=== PATIENT | male | born 1980 | race Caucasian/White ===

== ENCOUNTER 2017-05-24 20:45 | Inpatient (IN) ==
--- NOTE | 2017-05-24 21:39 | Emergency Department Note ---
Disposition Clinical Impression: Scrotal abscess, Hyperglycemia Disposition: Still a Patient Condition: Good Referrals: Michelle Schwarz MD [Primary Care Provider] - Forms: Work/School Release, ED Satisfaction Letter Time of Disposition: 22:32 General Adult HPI - General Chief complaint: ED Nausea/Vomiting/Diarrhea Stated complaint: Hyperglycemia Time Seen by Provider: 05/24/17 21:18 Source: patient Mode of arrival: ambulatory Limitations: no limitations Nursing Notes Reviewed: Yes Vital Signs Reviewed: Yes - History of Present Illness HPI Narrative: 36-year-old male presents emergency room for elevated blood sugars. States his sugars been running in the 500 range. He was recently diagnosed with type 2 diabetes last week. He was started on Glucophage and Actos. States over the past few days her sugars have been reading high. He admits to polyuria polydipsia. His also here complaining of a right scrotal abscess. He states he is always hot but denies any documented fevers. No vomiting or diarrhea. No other complaints. States she has been compliant with his oral diabetes medications. Pain Scale: 10 - Related Data Home Medications Medication Instructions Recorded Confirmed Omeprazole [PriLOSEC] 40 mg PO DAILY 03/29/17 04/07/17 Allergies Allergy/AdvReac Type Severity Reaction Status Date / Time Amoxicillin AdvReac Diarrhea Verified 05/15/17 20:09 Oxycodone [From Roxicodone] AdvReac Drowsy Verified 05/15/17 20:09 Penicillins [PCN] AdvReac Diarrhea Verified 05/15/17 20:09 All systems ED: reviewed and negative except as stated. Constitutional: Reports: as per HPI. Denies: fever, chills Eyes: Reports: as per HPI ENT ED: Reports: as per HPI Cardiovascular: Reports: as per HPI Respiratory: Reports: as per HPI Gastrointestinal: Denies: abdominal pain, nausea, vomiting Genitourinary: Reports: as per HPI Musculoskeletal: Reports: as per HPI Integumentary: Reports: lesions (Right scrotal abscess) Neurological: Reports: as per HPI Psychiatric: Reports: as per HPI Endocrine: Reports: as per HPI Hematological/Lymphatic: Reports: as per HPI Allergic/Immunologic: Reports: as per HPI Past Medical History - Past Medical History Medical history: Reports: diabetes, GERD Surgical history: Reports: herniorrhaphy, orthopedic, other, vasectomy, other Psychiatric history: Reports: anxiety, depression - Social History Smoking Status: Current every day smoker Smokeless Tobacco Status: No Alcohol use: Reports: none Drug use: Reports: none Physical Exam - General Limitations: no limitations General appearance: alert, in no apparent distress - Head Head exam: atraumatic, normocephalic - Eye Eye exam: Present: normal appearance - ENT ENT exam: normal exam - Neck Neck exam: Present: normal inspection - Chest Chest inspection: Present: normal inspection - Respiratory Respiratory exam: Present: normal lung sounds bilaterally - Cardiovascular Cardiovascular exam: Present: regular rate, normal rhythm - Abdominal Exam Abdominal exam: Present: soft, Non-Tender, normal bowel sounds - Male exam: Present: scrotal swelling (Right scrotal abscess noted. There is an opening to this abscess that is spontaneously draining pus. There is some surrounding erythema present as well.), other - Expanded Lower Extremity Exam Hip/Pelvis exam: Present: normal inspection - Neurological Exam Neurological exam: Present: alert, oriented X3 - Psychiatric Psychiatric exam: Present: normal affect, normal mood - Skin Skin exam: Present: warm, dry, intact Course Vital Signs Temperature 98.4 F 05/24/17 21:02 Pulse Rate 98 05/24/17 21:02 Respiratory Rate 16 05/24/17 21:02 Blood Pressure 164/108 05/24/17 21:02 O2 Sat by Pulse Oximetry 94 05/24/17 21:02 Temperature 98.4 F 05/24/17 21:02 Pulse Rate 98 05/24/17 21:02 Respiratory Rate 16 05/24/17 21:02 Blood Pressure 164/108 05/24/17 21:02 O2 Sat by Pulse Oximetry 94 05/24/17 21:02 Medical Decision Making - Medical Records Medical records reviewed: Yes I reviewed the patient's medical records. - Lab Data Lab results reviewed: Yes I reviewed the patient's lab results.
[2017-05-24 22:35] LABS: Basophils % 0.4 %; Eosinophils # 0.2 K/mcL (0.0-0.6); Eosinophils % 1.9 %; Hematocrit 41.4 % (37.5-50.1); Hemoglobin 15.1 g/dL (12.9-16.9); Immature Granulocytes % 2.5 % (0-4); Lymphocytes # 3.1 K/mcL (0.6-4.6); Lymphocytes % 29.7 %; Mean Corpuscular HGB Conc 36.5 g/dL (31.6-35.5); Mean Corpuscular Hemoglobin 30.3 pg (28.0-33.3); Mean Corpuscular Volume 83.1 fL (83.0-100.0); Mean Platelet Volume 9.5 fL (9.4-12.4); Monocytes # 0.5 K/mcL (0.0-1.3); Neutrophils # 6.4 K/mcL (1.6-8.9); Platelet Count 235 K/mcL (140-400); Red Blood Count 4.98 M/mcL (4.19-5.50); Segmented Neutrophils % 60.5 %
[2017-05-24 22:52] LABS: Platelet Estimate Normal (Normal)
[2017-05-24 23:00] LABS: BUN/Creatinine Ratio 19 (6-26); Blood Urea Nitrogen 18 mg/dL (6-20); Calcium 9.4 mg/dL (8.6-10.3); Carbon Dioxide 23 mEq/L (23-29); Chloride 98 mEq/L (98-107); Glucose 546 mg/dL (70-105); Osmolality,Calculated 299 (280-300); Sodium 131 mEq/L (136-145); eGFR For African Americans > 60 (> 60); eGFR For Non-African Americans > 60 (> 60)
[2017-05-24] MEDS ORDERED: Clindamycin 600 MG/50 ML 600 MG/50 ML IV.SOLN IVPB ONE (23:17)
[2017-05-24 23:22] LABS: VBG HCO3 24 mEq/L (21-27); VBG PCO2 37 mmHg (41-51); VBG PH 7.42 pH Units (7.32-7.42); VBG PO2 114 mmHg (25-50)
[2017-05-24] MEDS ORDERED: Insulin Human Regular 10 UNIT in 0.9 % Sodium Chloride 10 ML IV ONE (23:44)
[2017-05-25] MEDS ORDERED: 0.9 % Sodium Chloride 1,000 ML IVC SCH (00:15)
[2017-05-25] MEDS: 0.9 % Sodium Chloride 1,000 ML IVC SCH ×3 (00:18→08:31)
--- NOTE | 2017-05-25 01:51 | Internal Med History&Physical ---
<Keli Forbes - Last Filed: 05/25/17 03:36> Date of Encounter: 05/25/17 Time of Encounter: 01:50 Assessment and Plan (1) Scrotal abscess Current visit: Yes Status: Acute 36-year-old male presenting with multiple episodes of scrotal abscess s/p I&D. Patient's most recent episode was last month Commence antibiotic coverage Wound culture, anaerobic and aerobic pending. We will de-escalate antibiotics, based on culture sensitivities We will consult surgery in a.m., for eval for I&D Consult wound care, appreciate coordination of care Testing for STDs. Patient consented to testing for HIV (2) Hyperglycemia Current visit: Yes Status: Acute 36-year-old male with diabetes type 2, presenting with hyperglycemia Hemoglobin A1c pending Depending on A1c, we will decide whether patient's insulin regimen. If pt transition to insulin, will need to d/c current home medicatioin Initiate sliding scale and Lantus as inpatient Diabetic Diet (3) DM type 2 (diabetes mellitus, type 2) Current visit: Yes Status: Chronic See plan above. UA pending Would benefit from diabetes education Recommended lifestyle changes with exercise and diet Patient and family verbalized understanding. Qualifiers: Diabetes mellitus rodent exterminator insulin use: without rodent exterminator use Diabetes mellitus complication status: with hyperglycemia Qualified Code(s): E11.65 - Type 2 diabetes mellitus with hyperglycemia (4) GERD (gastroesophageal reflux disease) Current visit: Yes Status: Acute Continue home medications. Qualifiers: Esophagitis presence: esophagitis presence not specified Qualified Code(s) : K21.9 - Gastro-esophageal reflux disease without esophagitis (5) DVT prophylaxis Current visit: Yes Status: Acute Heparin subcutaneous BID Internal Medicine - H&P: HPI Chief complaint: Hyperglycemia, Scrotal Pain Admitted From: Home Plans for Post Hospital Care: Home History of present illness: Mr. Morgan is a 36 year old male with recently diagnosed diabetes type 2 (1 week ago) presenting for hyperglycemia glucose levels of 590s at home. Patient was told by PCP to monitor glucose levels 1 times a day randomly. He states his glucose levels have ranged from 300 to 590s. Patient does not recall hemoglobin A1c. Patient endorses symptoms of nausea, lightheadedness, sweating with elevated glucose reading. 3 days prior to presentation, patient recalls also 1 episode of nonbloody nonbilious emesis. However he did not take his glucose levels at this time. Patient denies any tremors. Denies visit changes. Denies burning or tingling sensation in legs. Patient does not recall an episode where glucose levels were low. In terms of diet patient states he eats whatever he likes, including drinking fruit juices. He snacks on cookies. Endorses family history of type 2 diabetes in mother and Father. Patient also notes he has noted a scrotal abscess, for the past week which "opened up" 2 days ago with pus. Scrotal abscess on the right side near iliac crest. Patient states pain is constant and burning in nature. Denies relief of pain with elevation of scrotum. Does not know if he he has had a fever at home. Endorses increased urinary frequency, and urgency. Denies dysuria. Denies abdominal pain. Endorses history of scrotal surgery with vasectomy 2 years ago. Patient is in relationship with one person, is monogamous. Patient was last tested for STDs 2 years ago Past Med Surg Social Fam HX - Past Medical History Medical history: diabetes, GERD, hypertension Psychiatric history: anxiety, depression - Past Surgical History Surgical History: herniorrhaphy, orthopedic, other, vasectomy, other - Social History Smoking Status: Current every day smoker Packs per day: 1 Smokeless Tobacco Status: No Alcohol use: rarely Drug use: none - Family History Mother Living Status: Age at : 54 Cause of : Overdose Hx Family Cardiac Disorders: Yes (HTN) Hx Family Endocrine Disorder: Yes (DM) Internal Medicine - H&P: Meds Omeprazole [PriLOSEC] 40 mg PO BID 03/29/17 [History] Pioglitazone HCl [Actos] 30 mg PO DAILY 05/25/17 [History] metFORMIN 500 mg PO QID 05/25/17 [History] 3 Allergy/AdvReac Type Severity Reaction Status Date / Time Amoxicillin AdvReac Diarrhea Verified 05/15/17 20:09 Oxycodone [From Roxicodone] AdvReac Drowsy Verified 05/15/17 20:09 Penicillins [PCN] AdvReac Diarrhea Verified 05/15/17 20:09 All Systems PM: A 10-system review of systems was performed and is negative for pertinent findings except as documented above in the HPI. - Constitutional Constitutional: as per HPI - Cardiovascular Cardiovascular ROS IM: as per HPI - Respiratory Respiratory: as per HPI - Gastrointestinal Gastrointestinal: as per HPI - Genitourinary Genitourinary ROS male: as per HPI - Constitutional Vitals: Temp Pulse Resp BP Pulse Ox 98.3 F 90 16 117/75 93 05/25/17 01:34 05/25/17 01:34 05/25/17 01:34 05/25/17 01:34 05/25/17 01:34 General appearance: Present: cooperative, A&O X 3, obese, answers questions appropriately - Head Head exam: Present: atraumatic, normocephalic - Respiratory Respiratory exam: Present: CTAB. Absent: accessory muscle use, chest wall tenderness, respiratory distress - Cardiovascular Cardiovascular exam: Present: RRR, +S1, +S2. Absent: tachycardia - GI/Abdominal GI/Abdominal exam: Present: normal bowel sounds, soft, tenderness, no peritoneal signs - Additional comments: Residual left-sided scrotal abscess changes seen on left. - Expanded Exam Male exam: Present: erythema. Absent: penile swelling, priapism image: 1 - Scrotal abscesses on the right, with draining pus. No bluish reddish discoloration. Erythema overlying abcess. Internal Med - H&P Results - Labs CBC & Chem 7: 05/24/17 22:11 05/24/17 22:11 <Sirena Trotter - Last Filed: 05/25/17 04:36> Date of Encounter: 05/25/17 Internal Medicine - H&P: HPI History of present illness: Mr. Morgan is a 36 year old male All Systems PM: A 10-system review of systems was performed and is negative for pertinent findings except as documented above in the HPI. - Constitutional Vitals: Temp Pulse Resp BP Pulse Ox 97.8 F 85 16 121/72 95 05/25/17 03:45 05/25/17 03:45 05/25/17 03:45 05/25/17 03:45 05/25/17 03:45 Internal Med - H&P Results - Labs CBC & Chem 7: 05/24/17 22:11 05/24/17 22:11 - Attending Attestation I examined this patient and my medical decision-making was reviewed with the Resident Physician Dr. Forbes. I agree with the documented findings, disposition and treatment plan as described except to the extent set forth below. Mr. Morgan is a 36 y/o M with recently diagnosed DM2 on PO Metformin and Actos started by his PCP, who also had Left scrotal abscess s/p I & D a month ago by Dr. Pond now he presented to ER with Rt scrotal swelling, abscess and open with purulent drainage. He also have uncontrolled BS in 500 range at home Gen: A, A, O x 3 Chest: Diminished BS b/l Heart: S1S2 + RRR No murmus - small open wound over rt side of scrotum with purulent discharge. Healed ulcer over Left groin area noticed A/p 1. Acute Rt scrotal abscess Still has some induration Consult surgery in AM for further eval started on broad spec ab Clinda ( G+ve, MRSA and Anaerobic coverage ) and Rocephin - G-Ve coverage wound cx ordered check STD's 2. Uncontrolled DM2 3. Severe hyperglycemia ISS + Levemir HbA1C ordered Hold PO meds for now
[2017-05-25] MEDS ORDERED: Naloxone 0.4 MG/ML INJ IVP PRN (02:45)
[2017-05-25] MEDS ORDERED: Dextrose Gel 15 GM/37.5 ML TUBE PO PRN ×2 (03:51)
[2017-05-25] MEDS ORDERED: *HR* Dextrose 50 % in Water (Syg) 50 ML SYRINGE IVP PRN (03:51)
[2017-05-25] MEDS ORDERED: D5% in Water 1,000 ML IVC PRN (03:51)
[2017-05-25 04:27] LABS: Bilirubin,Urine Negative (Negative); Blood,Urine Negative (Negative); Clarity,Urine Clear (Clear); Color,Urine Yellow (Yellow); Glucose,Urine (UA) >=1000 mg/dL (Normal); Ketones,Urine Negative (Negative); Leukocyte Esterase,Urine Negative (Negative); Nitrite,Urine Negative (Negative); PH,Urine 6.5 pH Units (5.0-8.0); Protein,Urine Negative (Neg-Trace); Specific Gravity,Urine > 1.030 (1.010-1.025); Urobilinogen,Urine Normal (Normal)
--- NOTE | 2017-05-25 04:32 | Emergency Department Note ---
START Narrative - START START: I examined this patient and my medical decision-making was reviewed with the Resident Physician. I agree with the documented findings, disposition and treatment plan as described except to the extent set forth below. Findings consistent with hyperglycemia and scrotal abscess. No clinical signs of Katia's. We will start clindamycin and vancomycin and treat hyperglycemia with insulin and IV fluids. No evidence of diabetic ketoacidosis.
[2017-05-25] MEDS: Insulin DETEMIR 100 UNIT/ML X5UNITS SQ SCH ×2 (04:41→21:43)
[2017-05-25] MEDS: *HR* Heparin 5,000 UNIT/ML VIAL SQ SCH ×2 (04:41→16:40)
[2017-05-25 05:23] LABS: Basophils # 0.1 K/mcL (0.0-0.2); Basophils % 0.9 %; Eosinophils # 0.2 K/mcL (0.0-0.6); Hematocrit 39.1 % (37.5-50.1); Immature Granulocytes % 2.7 % (0-4); Lymphocytes # 3.7 K/mcL (0.6-4.6); Lymphocytes % 38.8 %; Mean Corpuscular HGB Conc 35.8 g/dL (31.6-35.5); Mean Corpuscular Volume 83.9 fL (83.0-100.0); Mean Platelet Volume 9.5 fL (9.4-12.4); Monocytes # 0.5 K/mcL (0.0-1.3); Monocytes % 5.2 %; Neutrophils # 4.8 K/mcL (1.6-8.9); Platelet Count 200 K/mcL (140-400); Red Blood Count 4.66 M/mcL (4.19-5.50); Red Cell Distribution Width 13.9 % (11.5-14.5); Segmented Neutrophils % 50.4 %
[2017-05-25 05:43] LABS: BUN/Creatinine Ratio 18 (6-26); Blood Urea Nitrogen 16 mg/dL (6-20); Calcium 8.5 mg/dL (8.6-10.3); Carbon Dioxide 23 mEq/L (23-29); Chloride 102 mEq/L (98-107); Chol/HDL Ratio 4.2 (0-4.9); Cholesterol 100 mg/dL (< 200); Glucose 337 mg/dL (70-105); HDL Cholesterol 24 mg/dL (40-59); Osmolality,Calculated 292 (280-300); Potassium 3.4 mEq/L (3.5-5.1); Sodium 134 mEq/L (136-145); Triglycerides 638 mg/dL (< 150); eGFR For African Americans > 60 (> 60); eGFR For Non-African Americans > 60 (> 60)
[2017-05-25] MEDS ORDERED: Insulin LISPRO 300 UNITS/3 ML VIAL SQ SCH (07:30)
[2017-05-25] MEDS: Clindamycin 600 MG/50 ML 600 MG/50 ML IV.SOLN IVPB SCH ×3 (08:31→23:36)
[2017-05-25] MEDS: cefTRIAXone 1,000 MG in Water for inj. (sterile) 20 ML 10 ML IVP SCH (08:31)
[2017-05-25 09:17] LABS: Estimated Average Glucose 223 mg/dl; Hemoglobin A1C 9.4 %
--- NOTE | 2017-05-25 11:14 | General Surgery Consult Note ---
<Soraya Watson - Last Filed: 05/25/17 11:22> Date of Encounter: 05/25/17 Time of Encounter: 10:45 Assessment and Plan (1) Scrotal abscess Current Visit: Yes Status: Acute Abscess is widely opened and drained Wound care- cleanse with soap and water in the shower and pat dry, pack with 1/ 4 inch plain gauze, cover with 2X2 gauze and tape to secure daily for the next 5 days and then discontinue. Supportive care Antibiotic management per hospitalist Treat hyperglycemia per hospitalist Surgery will sign off. No indication for further intervention. Thank you for allowing us to participate in the care of this patient. Please call with further questions or concerns. May follow-up as needed in the surgery office. (2) DM type 2 (diabetes mellitus, type 2) Current Visit: Yes Status: Chronic Management per hospitalist service Qualifiers: Diabetes mellitus penitentiary insulin use: without penitentiary use Diabetes mellitus complication status: with hyperglycemia Qualified Code(s): E11.65 - Type 2 diabetes mellitus with hyperglycemia History of Present Illness Consult date: 05/25/17 Reason for consult: other (scrotal abscess) Requesting physician: Keli Forbes History of present illness: Mr. Morgan is a 36 year old male with a past medical history significant for morbid obesity, HTN, diabetes mellitus (Type 2) diagnosed 1 week ago, GERD. He reports swelling in the right scrotum which started approximately 1 weeks ago. He states that the area spontaneously opened a couple of days ago and drained a large amount of purulent, foul smelling drainage. He reports a history of abscesses with his last abscess 1 month ago. He denies any fevers/chills. He admits that his blood sugars have ranged from 300-590. We have been asked to see and evaluate the patient for recommendations. Past Med Surg Social Fam HX - Past Medical History Source: patient Medical history: diabetes, GERD, hypertension, other (morbid obesity) Psychiatric history: anxiety, depression - Past Surgical History Surgical History: herniorrhaphy, orthopedic, other, vasectomy, other (I&D of left scrotal abscess) - Social History Smoking Status: Current every day smoker Packs per day: 1 Smokeless Tobacco Status: No Alcohol use: rarely Drug use: none - Family History Mother Living Status: Age at : 54 Cause of : Overdose Hx Family Cardiac Disorders: Yes (HTN) Hx Family Endocrine Disorder: Yes (DM) Medications and Allergies Omeprazole [PriLOSEC] 40 mg PO BID 03/29/17 [History] Metformin HCl [Glucophage] 1,000 mg PO BID 05/25/17 [History] Pioglitazone HCl [Actos] 30 mg PO DAILY 05/25/17 [History] 3 Allergy/AdvReac Type Severity Reaction Status Date / Time Amoxicillin AdvReac Diarrhea Verified 05/15/17 20:09 Oxycodone [From Roxicodone] AdvReac Drowsy Verified 05/15/17 20:09 Penicillins [PCN] AdvReac Diarrhea Verified 05/15/17 20:09 Review of Systems All systems PM: reviewed and no additional remarkable complaints except as stated (pertinent positives as listed in the HPI) All systems PM: The remainder of the systems were reviewed and are negative General Surgery Exam Initial Vital Signs Temp Pulse Resp BP Pulse Ox 98.4 F 98 16 164/108 94 05/24/17 21:02 05/24/17 21:02 05/24/17 21:02 05/24/17 21:02 05/24/17 21:02 - General physical appearance well developed, well nourished, no distress, obese - Eyes normal ocular movement - ENT normal mucosa, atraumatic, normocephalic - Neck trachea midline - Respiratory normal respiratory effort, clear to auscultation - Cardiovascular Cardiovascular exam: Present: RRR - Abdomen Abdomen general surgery: Present: bowel sounds present, soft, non tender - Genitourinary Present: other (right scrotum with open wound noted- widely open and measures 0.5 X 0.5 X 1cm. 90% granulation tissue noted. Small amount of serous drainage noted without odor. No surrounding erythema noted. Mild surrounding induration. No tunnelling or undermining noted.) - Integumentary Integumentary general surgery: Present: warm and dry - Neurologic Present: CN 2-12 grossly intact - Psychiatric Psychiatric general surgery: Present: appropriate, oriented to person, oriented to place, oriented to time, speech is normal, memory intact Exam Initial Vital Signs Temp Pulse Resp BP Pulse Ox 98.4 F 98 16 164/108 94 05/24/17 21:02 05/24/17 21:02 05/24/17 21:02 05/24/17 21:02 05/24/17 21:02 Results - Labs 05/25/17 05:03 05/25/17 05:03 Abnormal lab results MCHC 35.8 g/dL (31.6-35.5) H 05/25/17 05:03 ESR 27 mm/hr (0-10) H 05/24/17 22:56 VBG pCO2 37 mmHg (41-51) L 05/24/17 23:09 VBG pO2 114 mmHg (25-50) H 05/24/17 23:09 Sodium 134 mEq/L (136-145) L 05/25/17 05:03 Potassium 3.4 mEq/L (3.5-5.1) L 05/25/17 05:03 Glucose 337 mg/dL (70-105) H 05/25/17 05:03 POC Glucose 328 mg/dL (68-89) H 05/25/17 03:49 Hemoglobin A1c 9.4 % (-5.6) H 05/25/17 05:03 Calcium 8.5 mg/dL (8.6-10.3) L 05/25/17 05:03 C-Reactive Protein 36 mg/L (Less than 10) H 05/24/17 22:56 Triglycerides 638 mg/dL (< 150) H 05/25/17 05:03 HDL Cholesterol 24 mg/dL (40-59) L 05/25/17 05:03 Beta-Hydroxybutyric Acd 0.44 mmol/L (0.02-0.27) H 05/24/17 22:11 Ur Specific [place] > 1.030 (1.010-1.025) H 05/24/17 21:10 Urine Glucose (UA) >=1000 mg/dL (Normal) H 05/24/17 21:10 Diabetes panel 05/25/17 05/25/17 Range/Units 05:03 05:03 Sodium 134 L (136-145) mEq/L Potassium 3.4 L (3.5-5.1) mEq/L Chloride 102 (98-107) mEq/L Carbon Dioxide 23 (23-29) mEq/L BUN 16 (6-20) mg/dL Creatinine 0.89 (0.70-1.30) mg/dL Glucose 337 H (70-105) mg/dL Hemoglobin A1c 9.4 H ( - 5.6) % Calcium 8.5 L (8.6-10.3) mg/dL Triglycerides 638 H (< 150) mg/dL HDL Cholesterol 24 L (40-59) mg/dL Calcium panel 05/25/17 Range/Units 05:03 Calcium 8.5 L (8.6-10.3) mg/dL Pituitary panel 05/25/17 Range/Units 05:03 Sodium 134 L (136-145) mEq/L Potassium 3.4 L (3.5-5.1) mEq/L Chloride 102 (98-107) mEq/L Carbon Dioxide 23 (23-29) mEq/L BUN 16 (6-20) mg/dL Creatinine 0.89 (0.70-1.30) mg/dL Glucose 337 H (70-105) mg/dL Calcium 8.5 L (8.6-10.3) mg/dL Adrenal panel 05/25/17 Range/Units 05:03 Sodium 134 L (136-145) mEq/L Potassium 3.4 L (3.5-5.1) mEq/L Chloride 102 (98-107) mEq/L Carbon Dioxide 23 (23-29) mEq/L BUN 16 (6-20) mg/dL Creatinine 0.89 (0.70-1.30) mg/dL Glucose 337 H (70-105) mg/dL Calcium 8.5 L (8.6-10.3) mg/dL All other labs normal. Consult Discharge Plan - Plan Referrals: Michelle Schwarz MD [Primary Care Provider] - - Attending Attestation For this encounter, I have reviewed the CLAIMS ADJUSTER SUPERVISOR or PA documentation, treatment plan, and medical decision making; and I have had face to face time with this patient. <Gordon Pond - Last Filed: 05/25/17 15:50> Date of Encounter: 05/25/17 Review of Systems All systems PM: The remainder of the systems were reviewed and are negative General Surgery Exam Initial Vital Signs Temp Pulse Resp BP Pulse Ox 98.4 F 98 16 164/108 94 05/24/17 21:02 05/24/17 21:02 05/24/17 21:02 05/24/17 21:02 05/24/17 21:02 Exam Initial Vital Signs Temp Pulse Resp BP Pulse Ox 98.4 F 98 16 164/108 94 05/24/17 21:02 05/24/17 21:02 05/24/17 21:02 05/24/17 21:02 05/24/17 21:02 Results - Labs 05/25/17 05:03 05/25/17 05:03 Abnormal lab results MCHC 35.8 g/dL (31.6-35.5) H 05/25/17 05:03 ESR 27 mm/hr (0-10) H 05/24/17 22:56 VBG pCO2 37 mmHg (41-51) L 05/24/17 23:09 VBG pO2 114 mmHg (25-50) H 05/24/17 23:09 Sodium 134 mEq/L (136-145) L 05/25/17 05:03 Potassium 3.4 mEq/L (3.5-5.1) L 05/25/17 05:03 Glucose 337 mg/dL (70-105) H 05/25/17 05:03 POC Glucose 328 mg/dL (68-89) H 05/25/17 03:49 Hemoglobin A1c 9.4 % (-5.6) H 05/25/17 05:03 Calcium 8.5 mg/dL (8.6-10.3) L 05/25/17 05:03 C-Reactive Protein 36 mg/L (Less than 10) H 05/24/17 22:56 Triglycerides 638 mg/dL (< 150) H 05/25/17 05:03 HDL Cholesterol 24 mg/dL (40-59) L 05/25/17 05:03 Beta-Hydroxybutyric Acd 0.44 mmol/L (0.02-0.27) H 05/24/17 22:11 Ur Specific [place] > 1.030 (1.010-1.025) H 05/24/17 21:10 Urine Glucose (UA) >=1000 mg/dL (Normal) H 05/24/17 21:10 Diabetes panel 05/25/17 05/25/17 Range/Units 05:03 05:03 Sodium 134 L (136-145) mEq/L Potassium 3.4 L (3.5-5.1) mEq/L Chloride 102 (98-107) mEq/L Carbon Dioxide 23 (23-29) mEq/L BUN 16 (6-20) mg/dL Creatinine 0.89 (0.70-1.30) mg/dL Glucose 337 H (70-105) mg/dL Hemoglobin A1c 9.4 H ( - 5.6) % Calcium 8.5 L (8.6-10.3) mg/dL Triglycerides 638 H (< 150) mg/dL HDL Cholesterol 24 L (40-59) mg/dL Calcium panel 05/25/17 Range/Units 05:03 Calcium 8.5 L (8.6-10.3) mg/dL Pituitary panel 05/25/17 Range/Units 05:03 Sodium 134 L (136-145) mEq/L Potassium 3.4 L (3.5-5.1) mEq/L Chloride 102 (98-107) mEq/L Carbon Dioxide 23 (23-29) mEq/L BUN 16 (6-20) mg/dL Creatinine 0.89 (0.70-1.30) mg/dL Glucose 337 H (70-105) mg/dL Calcium 8.5 L (8.6-10.3) mg/dL Adrenal panel 05/25/17 Range/Units 05:03 Sodium 134 L (136-145) mEq/L Potassium 3.4 L (3.5-5.1) mEq/L Chloride 102 (98-107) mEq/L Carbon Dioxide 23 (23-29) mEq/L BUN 16 (6-20) mg/dL Creatinine 0.89 (0.70-1.30) mg/dL Glucose 337 H (70-105) mg/dL Calcium 8.5 L (8.6-10.3) mg/dL All other labs normal. - Attending Attestation The patient is seen and evaluated. The patient has previously had resection of scrotal abscess. He presented with severe hyperglycemia associated with new onset diagnosis of diabetes. The recurrent perineal abscess open spontaneously. This being packed with iodoform. No further action is necessary. This actually essential to control his blood sugars to promote wound healing. Gordon Pond MD FACS
[2017-05-25] MEDS: Insulin LISPRO 300 UNITS/3 ML VIAL SQ SCH ×3 (12:13→21:43)
--- NOTE | 2017-05-25 12:55 | Internal Med Progress Note ---
Date of Encounter: 05/25/17 Time of Encounter: 10:35 - Assessment and plan (1) Scrotal abscess Current Visit: Yes Status: Acute Assessment and plan: Being treated with ceftriaxone and clindamycin. Surgery following. Will follow response. Moderate risk for complications. (2) DM type 2 (diabetes mellitus, type 2) Current Visit: Yes Status: Chronic Assessment and plan: Patient continues to have hyperglycemia. Blood sugars have improved however since hospitalization. Given his significantly elevated blood sugars on presentation, I recommend that he be started on insulin therapy in addition to metformin and Actos. We will discuss with medical social worker as to best options for this patient with regards to insulin. For now, place patient on high-dose correctional sliding scale and long-acting insulin. We will continue to monitor blood sugars and adjust insulin regimen accordingly. Qualifiers: Diabetes mellitus long term care social worker insulin use: without senior living use Diabetes mellitus complication status: with hyperglycemia Qualified Code(s): E11.65 - Type 2 diabetes mellitus with hyperglycemia (3) GERD (gastroesophageal reflux disease) Current Visit: Yes Status: Chronic Assessment and plan: Continue Prilosec Qualifiers: Esophagitis presence: esophagitis presence not specified Qualified Code(s) : K21.9 - Gastro-esophageal reflux disease without esophagitis (4) Hyperglycemia Current Visit: Yes Status: Acute Assessment and plan: Management as above for diabetes (5) DVT prophylaxis Current Visit: Yes Status: Acute Assessment and plan: With subcutaneous heparin - Time Spent With Patient Total time spent is greater than 50% in coordination of care (as documented) at patient's floor/unit and/or counseling patient: - Subjective Interval history: Patient continues to have pain in his right scrotal region. He was evaluated for surgery this morning. Wound packed. No fever or chills reported overnight. No nausea or vomiting. Patient reports that he was recently started on metformin and Actos for his diabetes. He says that he has been compliant with these medications. - Constitutional Vitals: Temp Pulse Resp BP Pulse Ox 97.7 F 92 15 116/72 96 05/25/17 10:25 05/25/17 10:25 05/25/17 10:25 05/25/17 10:25 05/25/17 10:25 General appearance: Present: cooperative, A&O X 3, obese, answers questions appropriately - Neck Neck exam general surgery: Present: supple, trachea midline. Absent: lymphadenopathy - Respiratory Respiratory exam: Present: CTAB. Absent: accessory muscle use, rales, rhonchi, wheezes - Cardiovascular Cardiovascular exam: Present: RRR, +S1, +S2. Absent: diastolic murmur, gallop, rubs, systolic murmur - GI/Abdominal GI/Abdominal exam: Present: normal bowel sounds, soft, no peritoneal signs. Absent: distended, tenderness - exam: Present: scrotal swelling - Extremities Exam Extremities exam: Present: warm, radial pulses palpable and symmetrical. Absent : calf tenderness, cyanotic, pedal edema - Neurological Exam Neurological exam: Present: alert, oriented X3, no focal deficits. Absent: facial droop, speech deficit - Skin Skin exam: Present: dry, intact Internal Medicine: Result - Labs CBC & Chem 7: 05/25/17 05:03 05/25/17 05:03 Labs: Short CBC 05/25/17 Range/Units 05:03 WBC 9.5 (4.3-11.1) K/mcL Hgb 14.0 (12.9-16.9) g/dL Hct 39.1 (37.5-50.1) % Plt Count 200 (140-400) K/mcL Neutrophils # 4.8 (1.6-8.9) K/mcL BMP 05/25/17 05:03 Sodium 134 L Potassium 3.4 L Chloride 102 Carbon Dioxide 23 BUN 16 Creatinine 0.89 Glucose 337 H Calcium 8.5 L Consult Discharge Plan - Plan Referrals: Michelle Schwarz MD [Primary Care Provider] -
[2017-05-25] MEDS: Ringers Solution, Lactated 1,000 ML IVC SCH (22:02)
[2017-05-26] MEDS: *HR* Heparin 5,000 UNIT/ML VIAL SQ SCH ×2 (05:29→17:49)
[2017-05-26 06:06] LABS: Basophils # 0.1 K/mcL (0.0-0.2); Basophils % 1.3 %; Eosinophils # 0.2 K/mcL (0.0-0.6); Eosinophils % 2.1 %; Hematocrit 39.8 % (37.5-50.1); Hemoglobin 14.2 g/dL (12.9-16.9); Lymphocytes # 3.5 K/mcL (0.6-4.6); Lymphocytes % 38.1 %; Mean Corpuscular HGB Conc 35.7 g/dL (31.6-35.5); Mean Platelet Volume 9.4 fL (9.4-12.4); Monocytes # 0.5 K/mcL (0.0-1.3); Monocytes % 5.6 %; Neutrophils # 4.5 K/mcL (1.6-8.9); Platelet Count 209 K/mcL (140-400); Red Blood Count 4.74 M/mcL (4.19-5.50); Red Cell Distribution Width 13.6 % (11.5-14.5); Segmented Neutrophils % 49.9 %
[2017-05-26 06:20] LABS: BUN/Creatinine Ratio 13 (6-26); Blood Urea Nitrogen 11 mg/dL (6-20); Calcium 8.5 mg/dL (8.6-10.3); Carbon Dioxide 26 mEq/L (23-29); Chloride 107 mEq/L (98-107); Glucose 145 mg/dL (70-105); Osmolality,Calculated 290 (280-300); Potassium 3.5 mEq/L (3.5-5.1); Sodium 139 mEq/L (136-145); eGFR For African Americans > 60 (> 60); eGFR For Non-African Americans > 60 (> 60)
[2017-05-26] MEDS ORDERED: Insulin DETEMIR 100 UNIT/ML X5UNITS SQ SCH (09:00)
[2017-05-26] MEDS ORDERED: Ibuprofen 600 MG TABLET PO PRN (09:12)
[2017-05-26] MEDS: cefTRIAXone 1,000 MG in Water for inj. (sterile) 20 ML 10 ML IVP SCH (09:50)
[2017-05-26] MEDS: Insulin LISPRO 300 UNITS/3 ML VIAL SQ SCH ×4 (09:51→20:50)
[2017-05-26] MEDS: *HR* HYDROcodone/Acet 5/325 mg TABLET PO PRN ×3 (09:53→20:53)
--- NOTE | 2017-05-26 09:56 | Internal Med Progress Note ---
Date of Encounter: 05/26/17 Time of Encounter: 09:00 - Assessment and plan (1) Scrotal abscess Current Visit: Yes Status: Acute Assessment and plan: Wound packed yesterday. Continue current antibiotics. Wound culture growing gram-negative rods. We will await final culture results. Continue local wound care. (2) DM type 2 (diabetes mellitus, type 2) Current Visit: Yes Status: Chronic Assessment and plan: Blood sugars are improved today. Will place patient on 70/30 insulin. collar worker consulted to help with medication costs. Qualifiers: Diabetes mellitus group home insulin use: without group home use Diabetes mellitus complication status: with hyperglycemia Qualified Code(s): E11.65 - Type 2 diabetes mellitus with hyperglycemia (3) GERD (gastroesophageal reflux disease) Current Visit: Yes Status: Chronic Assessment and plan: Continue omeprazole Qualifiers: Esophagitis presence: esophagitis presence not specified Qualified Code(s) : K21.9 - Gastro-esophageal reflux disease without esophagitis (4) Hyperglycemia Current Visit: Yes Status: Resolved (5) DVT prophylaxis Current Visit: Yes Status: Acute Assessment and plan: With subcutaneous heparin - Time Spent With Patient Total time spent is greater than 50% in coordination of care (as documented) at patient's floor/unit and/or counseling patient: - Subjective Interval history: Patient complains of mild pain in his scrotal region. Otherwise doing well. No fever or chills reported overnight. - Constitutional Vitals: Temp Pulse Resp BP Pulse Ox 97.8 F 81 16 140/86 96 05/26/17 07:49 05/26/17 07:49 05/26/17 07:49 05/26/17 07:49 05/26/17 07:49 General appearance: Present: cooperative, A&O X 3, obese, answers questions appropriately - Neck Neck exam general surgery: Present: supple, trachea midline. Absent: lymphadenopathy - Respiratory Respiratory exam: Present: CTAB. Absent: accessory muscle use, rales, rhonchi, wheezes - Cardiovascular Cardiovascular exam: Present: RRR, +S1, +S2. Absent: diastolic murmur, gallop, rubs, systolic murmur - GI/Abdominal GI/Abdominal exam: Present: normal bowel sounds, soft, no peritoneal signs. Absent: distended, tenderness - Extremities Exam Extremities exam: Present: warm, radial pulses palpable and symmetrical. Absent : calf tenderness, cyanotic, pedal edema - Neurological Exam Neurological exam: Present: alert, oriented X3, no focal deficits. Absent: facial droop, speech deficit Internal Medicine: Result - Labs CBC & Chem 7: 05/26/17 05:36 05/26/17 05:36 Labs: Short CBC 05/26/17 Range/Units 05:36 WBC 9.1 (4.3-11.1) K/mcL Hgb 14.2 (12.9-16.9) g/dL Hct 39.8 (37.5-50.1) % Plt Count 209 (140-400) K/mcL Neutrophils # 4.5 (1.6-8.9) K/mcL BMP 05/26/17 05:36 Sodium 139 Potassium 3.5 Chloride 107 Carbon Dioxide 26 BUN 11 Creatinine 0.85 Glucose 145 H Calcium 8.5 L Consult Discharge Plan - Plan Referrals: Michelle Schwarz MD [Primary Care Provider] -
[2017-05-26] MEDS: Ringers Solution, Lactated 1,000 ML IVC SCH ×2 (10:14→14:07)
[2017-05-26] MEDS: Clindamycin 600 MG/50 ML 600 MG/50 ML IV.SOLN IVPB SCH (11:12)
[2017-05-26] MEDS: Insulin NPH/REG 70/30 100 UNIT/ML (x5UNIT) SQ SCH ×2 (11:14→17:49)
[2017-05-27] MEDS: Ringers Solution, Lactated 1,000 ML IVC SCH (03:51)
[2017-05-27] MEDS: *HR* Heparin 5,000 UNIT/ML VIAL SQ SCH (03:54)
[2017-05-27] MEDS: *HR* HYDROcodone/Acet 5/325 mg TABLET PO PRN (09:57)
[2017-05-27] MEDS: cefTRIAXone 1,000 MG in Water for inj. (sterile) 20 ML 10 ML IVP SCH (09:57)
[2017-05-27] MEDS: Insulin LISPRO 300 UNITS/3 ML VIAL SQ SCH ×2 (09:58→12:18)
--- NOTE | 2017-05-27 10:37 | Discharge Summary ---
- NOTES TO OUTPATIENT PROVIDER Notes to Outpatient Provider: Patient with newly diagnosed diabetes with uncontrolled blood sugars. Started on insulin. Provided prescription for supplies. Patient also has history of hidradenitis and has developed recurrent scrotal abscess. Treated with antibiotics. Date of Encounter: 05/27/17 Time of Encounter: 10:34 - Discharge Diagnosis (1) Scrotal abscess Priority: Primary Status: Acute (2) DM type 2 (diabetes mellitus, type 2) Priority: Secondary Status: Chronic Qualifiers: Diabetes mellitus [facility] insulin use: without watermelon inspector use Diabetes mellitus complication status: with hyperglycemia Qualified Code(s): E11.65 - Type 2 diabetes mellitus with hyperglycemia (3) GERD (gastroesophageal reflux disease) Priority: Secondary Status: Chronic Qualifiers: Esophagitis presence: esophagitis presence not specified Qualified Code(s) : K21.9 - Gastro-esophageal reflux disease without esophagitis (4) Hyperglycemia Priority: Secondary Status: Resolved (5) DVT prophylaxis Priority: Secondary Status: Acute Hospital course: Mr. Morgan is a 36 year old male patient with recently diagnosed diabetes mellitus was hospitalized here with right-sided scrotal abscess. He had previously had left-sided scrotal abscess which was drained with surgery in the past. As he was recovering from that he developed new swelling in the right scrotal region. This was already draining by the time he came to the ER. He was started on IV antibiotics and surgery was consulted. They recommended local wound packing. Since then his been doing well. His wound cultures were positive for 2 strains of Klebsiella pneumoniae both of which are sensitive to cephalosporins and as such patient will be discharged home on Omnicef. Patient has had uncontrolled blood sugars and presented with a blood glucose level of greater than 500 initially. He has been on metformin and Actos. However given his high blood sugars, I recommend starting him on insulin. He has been placed on insulin 70/30 and has good response to it. He is advised to continue using Actos and metformin also. He will also monitor his blood sugars closely and has blood glucose monitor and test strips with him. His A1c was 9.4 %. Discharge discussed with: patient, nurse - Time Spent with Patient Total time spent providing and/or coordinating discharge services: Less than 30 minutes (25 min) - Discharge Medications Prescriptions: Ibuprofen [Motrin] 600 mg PO Q8HR PRN #30 tablet PRN Reason: Moderate Pain Cefdinir [Omnicef] 300 mg PO BID #10 capsule Insulin NPH Hum/Reg Insulin Hm [Humulin 70/30 Kwikpen] 20 unit SQ BID #1 insuln.pen Home Medications: Omeprazole [PriLOSEC] 40 mg PO BID 03/29/17 [History] Metformin HCl [Glucophage] 1,000 mg PO BID 05/25/17 [History] Pioglitazone HCl [Actos] 30 mg PO DAILY 05/25/17 [History] Cefdinir [Omnicef] 300 mg PO BID #10 capsule 05/27/17 [Rx] Ibuprofen [Motrin] 600 mg PO Q8HR PRN #30 tablet 05/27/17 [Rx] Insulin NPH Hum/Reg Insulin Hm [Humulin 70/30 Kwikpen] 20 unit SQ BID #1 insuln.pen 05/27/17 [Rx] Allergies/Adverse Reactions: 3 Allergy/AdvReac Type Severity Reaction Status Date / Time Amoxicillin AdvReac Diarrhea Verified 05/15/17 20:09 Oxycodone [From Roxicodone] AdvReac Drowsy Verified 05/15/17 20:09 Penicillins [PCN] AdvReac Diarrhea Verified 05/15/17 20:09 Date of admission: 05/25/17 04:40 Primary care physician: Michelle Schwarz MD Consults: 05/25/17 03:46 Consult to Surgery [CONS] Routine Consulting Provider: [facility] Reason for Consult: R Scrotal Abcess. Seen in Mar 2017 for L Scrotal Abcess, s/p I&D with Gordon Pond MD Call Completed: No Consult to Wound Care [CONS] Routine Reason for Consult: Scrotal Abcess Call Completed: No 05/25/17 03:58 Consult to Diabetes Education [CONS] Routine Comment: Reason for Consult: Diagnosis of DM 1 week prior to presentation Discharging clinician: Katelin Cook Anticipated date of discharge: 05/27/17 - Constitutional Vitals: Temp Pulse Resp BP Pulse Ox 97.5 F L 68 16 129/83 98 05/27/17 07:28 05/27/17 07:28 05/27/17 07:28 05/27/17 07:28 05/27/17 07:28 General appearance: Present: cooperative, A&O X 3, obese, answers questions appropriately - Neck Neck exam general surgery: Present: supple, trachea midline. Absent: lymphadenopathy - Respiratory Respiratory exam: Present: CTAB. Absent: accessory muscle use, rales, rhonchi, wheezes - Cardiovascular Cardiovascular exam: Present: RRR, +S1, +S2. Absent: diastolic murmur, gallop, rubs, systolic murmur - GI/Abdominal GI/Abdominal exam: Present: normal bowel sounds, soft, no peritoneal signs. Absent: distended, tenderness - exam: Present: scrotal swelling (Improving) - Extremities Exam Extremities exam: Present: warm, radial pulses palpable and symmetrical. Absent : calf tenderness, cyanotic, pedal edema - Patient Status Disposition: Home, Self-Care Condition: Good Functional capacity at discharge: independent ambulation Overall status at discharge: patient is progressing back to baseline - Discharge Instructions Instructions: Diabetes Mellitus Type 2 in Adults (DC) Follow Up With: Michelle Schwarz MD [Primary Care Provider] - (in 1 week) Additional Instructions: Follow-up with the wound clinic as needed - Diet and Activity Activity: increase activity as tolerated Diet: diabetic diet, low fat, low cholesterol, low salt diet
[2017-05-27 11:00] VITALS: BP 157/94
[2017-05-27] MEDS: Insulin NPH/REG 70/30 100 UNIT/ML (x5UNIT) SQ SCH (12:19)
== END 2017-05-27 13:10 | disposition home or self-care (01) | DRG 501 ==
LOC: EMEROO 20:45 → 2ANU 20:45 → SUATTDRO 05-25 04:40 → 2ANU 05-25 19:07
PROVIDERS: ADMIT Internal Medicine; ATTEND Internal Medicine

== ENCOUNTER 2019-12-04 12:48 | Observation (INO) ==
[2019-12-04] MEDS ORDERED: Aspirin 81 MG TAB.CHEW PO STA (13:03)
[2019-12-04] MEDS ORDERED: 0.9 % Sodium Chloride 1,000 ML IVC ONE (13:03)
[2019-12-04 13:28] LABS: Basophils # 0.1 K/mcL (0.0-0.2); Basophils % 0.9 %; Eosinophils # 0.2 K/mcL (0.0-0.6); Eosinophils % 2.4 %; Hematocrit 44.3 % (37.5-50.1); Hemoglobin 15.3 g/dL (12.9-16.9); Immature Granulocytes % 1.8 % (0-4); Lymphocytes # 1.5 K/mcL (0.6-4.6); Lymphocytes % 19.5 %; Mean Corpuscular HGB Conc 34.5 g/dL (31.6-35.5); Mean Corpuscular Hemoglobin 30.4 pg (28.0-33.3); Mean Corpuscular Volume 88.1 fL (83.0-100.0); Mean Platelet Volume 9.5 fL (9.4-12.4); Monocytes # 0.5 K/mcL (0.0-1.3); Monocytes % 6.7 %; Neutrophils # 5.4 K/mcL (1.6-8.9); Platelet Count 176 K/mcL (140-400); Red Blood Count 5.03 M/mcL (4.19-5.50); Red Cell Distribution Width 13.8 % (11.5-14.5); Segmented Neutrophils % 68.7 %; White Blood Count 7.8 K/mcL (4.3-11.1)
[2019-12-04 13:45] LABS: Alanine Aminotransferase 19 Units/L (7-52); Albumin 4.1 g/dL (3.5-5.7); Albumin/Globulin Ratio 1.5 (1.1-2.2); Alkaline Phosphatase 78 Units/L (34-104); Aspartate Amino Transferase 16 Units/L (13-39); BUN/Creatinine Ratio 15 (6-26); Bilirubin,Total 0.7 mg/dL (0.3-1.0); Blood Urea Nitrogen 13 mg/dL (6-20); Calcium 8.9 mg/dL (8.6-10.3); Carbon Dioxide 19 mEq/L (23-29); Chloride 92 mEq/L (98-107); Ethanol < 10 mg/dL (Less than 10); Globulin 2.7 g/dL (2.4-3.5); Glucose 689 mg/dL (70-105); Osmolality,Calculated 293 (280-300); Potassium 4.6 mEq/L (3.5-5.1); Sodium 125 mEq/L (136-145); Total Protein 6.8 g/dL (6.4-8.9); eGFR For African Americans > 60 (> 60); eGFR For Non-African Americans > 60 (> 60)
[2019-12-04 14:03] LABS: Thyroid Stimulating Hormone 2.554 mcIU/mL (0.340-5.600); Troponin I < 0.03 ng/mL (< 0.04)
[2019-12-04] MEDS: Insulin Human Regular 100 UNIT in 0.9 % Sodium Chloride 100 ML IVC SCH (14:54)
[2019-12-04] MEDS: 0.9 % Sodium Chloride 1,000 ML IVC SCH (14:55)
[2019-12-04] MEDS ORDERED: Ondansetron 4 MG/2 ML VIAL IVP PRN (15:01)
[2019-12-04] MEDS ORDERED: Naloxone 0.4 MG/ML INJ IVP PRN (15:01)
[2019-12-04] MEDS ORDERED: Insulin Regular, Human 100 UNIT/ML IV PRN (15:03)
[2019-12-04] MEDS ORDERED: *HR* Dextrose 50 % in Water (Vial) 50 ML VIAL IVP PRN (15:03)
[2019-12-04] MEDS ORDERED: *HR* Enoxaparin 150 MG/ML SYRINGE SQ STA (15:07)
[2019-12-04] MEDS ORDERED: Perflutren Lipid Microsphere 1.3 ML in 0.9 % Sodium Chloride 8.7 ML IVP PRN (15:19)
[2019-12-04 18:43] LABS: BUN/Creatinine Ratio 15 (6-26); Blood Urea Nitrogen 11 mg/dL (6-20); Calcium 8.5 mg/dL (8.6-10.3); Carbon Dioxide 19 mEq/L (23-29); Chloride 102 mEq/L (98-107); Glucose 366 mg/dL (70-105); Osmolality,Calculated 294 (280-300); Potassium 3.5 mEq/L (3.5-5.1); Sodium 135 mEq/L (136-145); eGFR For African Americans > 60 (> 60); eGFR For Non-African Americans > 60 (> 60)
[2019-12-04 19:40] LABS: Estimated Average Glucose 321 mg/dl
[2019-12-04] MEDS: 0.9 % Sodium Chloride w KCl 20 MEQ/1,000 ML MLS IVC SCH (19:47)
[2019-12-04] MEDS: D5% in 0.45% NACL w KCl 20 MEQ/1,000 ML MLS IVC PRN (21:38)
[2019-12-04 21:47] LABS: BUN/Creatinine Ratio 19 (6-26); Blood Urea Nitrogen 13 mg/dL (6-20); Calcium 8.7 mg/dL (8.6-10.3); Carbon Dioxide 21 mEq/L (23-29); Chloride 106 mEq/L (98-107); Glucose 188 mg/dL (70-105); Osmolality,Calculated 289 (280-300); Potassium 3.7 mEq/L (3.5-5.1); Sodium 137 mEq/L (136-145); eGFR For African Americans > 60 (> 60); eGFR For Non-African Americans > 60 (> 60)
[2019-12-05] MEDS: Insulin Human Regular 100 UNIT in 0.9 % Sodium Chloride 100 ML IVC SCH (01:16)
[2019-12-05] MEDS: D5% in 0.45% NACL w KCl 20 MEQ/1,000 ML MLS IVC PRN ×2 (02:14→06:35)
[2019-12-05 03:32] LABS: Basophils # 0.1 K/mcL (0.0-0.2); Basophils % 0.9 %; Eosinophils # 0.2 K/mcL (0.0-0.6); Eosinophils % 2.6 %; Hematocrit 39.1 % (37.5-50.1); Immature Granulocytes % 1.6 % (0-4); Lymphocytes # 3.3 K/mcL (0.6-4.6); Lymphocytes % 42.6 %; Mean Corpuscular HGB Conc 34.3 g/dL (31.6-35.5); Mean Corpuscular Hemoglobin 29.9 pg (28.0-33.3); Mean Corpuscular Volume 87.3 fL (83.0-100.0); Mean Platelet Volume 9.4 fL (9.4-12.4); Monocytes # 0.5 K/mcL (0.0-1.3); Monocytes % 6.4 %; Neutrophils # 3.5 K/mcL (1.6-8.9); Platelet Count 159 K/mcL (140-400); Red Blood Count 4.48 M/mcL (4.19-5.50); Segmented Neutrophils % 45.9 %; White Blood Count 7.7 K/mcL (4.3-11.1)
[2019-12-05 03:33] LABS: Hemoglobin 13.4 g/dL (12.9-16.9)
[2019-12-05 03:44] LABS: BUN/Creatinine Ratio 16 (6-26); Blood Urea Nitrogen 10 mg/dL (6-20); Calcium 8.1 mg/dL (8.6-10.3); Carbon Dioxide 20 mEq/L (23-29); Chloride 109 mEq/L (98-107); Chol/HDL Ratio 6.3 (0-4.9); Cholesterol 184 mg/dL (< 200); Glucose 97 mg/dL (70-105); HDL Cholesterol 29 mg/dL (40-59); Magnesium 2.1 mg/dL (1.6-2.6); Osmolality,Calculated 289 (280-300); Potassium 3.2 mEq/L (3.5-5.1); Sodium 140 mEq/L (136-145); Triglycerides 879 mg/dL (< 150); eGFR For African Americans > 60 (> 60); eGFR For Non-African Americans > 60 (> 60)
[2019-12-05 04:16] LABS: VBG HCO3 22 mEq/L (21-27); VBG PCO2 38 mmHg (41-51); VBG PH 7.37 pH Units (7.32-7.42); VBG PO2 116 mmHg (25-50)
[2019-12-05] MEDS ORDERED: Insulin DETEMIR 100 UNIT/ML X5UNITS SQ ONE (04:35)
[2019-12-05] MEDS ORDERED: D5% in Water 1,000 ML IVC PRN (04:36)
[2019-12-05] MEDS ORDERED: *HR* Dextrose 50 % in Water (Vial) 50 ML VIAL IVP PRN (04:36)
[2019-12-05] MEDS ORDERED: Dextrose Gel 15 GM/37.5 ML TUBE PO PRN ×2 (04:36)
[2019-12-05] MEDS ORDERED: Insulin LISPRO 300 UNITS/3 ML VIAL SQ SCH (04:45)
[2019-12-05] MEDS: Insulin LISPRO 300 UNITS/3 ML VIAL SQ SCH ×3 (05:55→12:50)
[2019-12-05] MEDS ORDERED: Regadenoson 0.4 MG/5 ML SYRINGE IVP ONE (08:54)
[2019-12-05] MEDS ORDERED: Insulin DETEMIR 100 UNIT/ML X5UNITS SQ SCH ×2 (09:00→21:00)
[2019-12-05] MEDS: Potassium Chloride Elixir 20 MEQ/15 ML UDC PO SCH ×2 (10:57→11:57)
[2019-12-05 11:31] VITALS: BP 137/93
[2019-12-05] MEDS: 0.9 % Sodium Chloride w KCl 20 MEQ/1,000 ML MLS IVC SCH ×2 (11:39→11:40)
[2019-12-05] MEDS: 0.9 % Sodium Chloride 1,000 ML IVC SCH (11:40)
== END 2019-12-05 15:30 | disposition home or self-care (01) ==
LOC: EMEROOARM 12:48 → 2NNU 12:48 → SUATTDRO 17:55 → 2NNU 18:30 → 2ANU 12-05 11:31
PROVIDERS: ADMIT Internal Medicine; ATTEND Internal Medicine